=== PATIENT | male | born 1990 | race African-American/Black ===

== ENCOUNTER 2017-06-16 11:38 | Emergency (ER) | payer SELFPAY ==
[~2017-06-16] VITALS: Ht 177.8 cm; Wt 70.0 kg
[2017-06-16] MEDS ORDERED: ERYTHROMYCIN O3.5 GM OD (12:28)
[2017-06-16 12:37] VITALS: BP 136/86
== END 2017-06-16 12:52 | disposition home or self-care (01) | DRG 125 ==
LOC: ED 11:38
DX: S05.02XA Injury of conjunctiva and corneal abrasion without foreign body, left eye, initial encounter (principal); H57.12 Ocular pain, left eye; W22.8XXA Striking against or struck by other objects, initial encounter; Y93.89 Activity, other specified; Y92.000 Kitchen of unspecified non-institutional (private) residence as the place of occurrence of the external cause